=== PATIENT | female | born 1985 | race Caucasian/White ===

== ENCOUNTER 2020-12-03 19:32 | Emergency (ER) | payer OTHER ==
[~2020-12-03] VITALS: Ht 162.6 cm; Wt 72.1 kg
[~2020-12-03 19:32] MED LIST: CIPROFLOXACIN500 M1 PO; IBUPROFEN 600600 M1 PO; NAPROSYN500 MG PO; NORCO 5-325 TA1 EACH PO; ONDANSETRON HCL4 M2 PO; PRENATAL COMPL1 EACH PO; TRAMADOL 50 MG50 MG PO; VENTOLIN HFA 1818 GM INH
[2020-12-03] MEDS ORDERED: TESSALON PERLE100 MG PO (21:25)
[2020-12-03] MEDS ORDERED: PROAIR HFA8.5 GM INH (21:25)
[2020-12-03] MEDS ORDERED: ZPAK PO (21:25)
[2020-12-03] MEDS ORDERED: PREDNISONE 20 M20 M1 PO (21:25)
[2020-12-03 21:31] VITALS: BP 118/69
== END 2020-12-03 21:31 | disposition home or self-care (01) ==
LOC: ER 19:32
DX: J18.9 Pneumonia, unspecified organism (principal); J45.990 Exercise induced bronchospasm; F17.210 Nicotine dependence, cigarettes, uncomplicated; M06.9 Rheumatoid arthritis, unspecified